=== PATIENT | male | born 1950 | race Caucasian/White ===

== ENCOUNTER 2025-02-10 12:54 | Outpatient (AMB) | payer MEDICARE, MEDICAID, SELFPAY ==
--- NOTE | 2025-02-10 12:57 | A.OFFVIS_ITS ---
Intake Visit Reasons: Hidden penis (Likely circumcision consult) Intake Note: Patient is present for HIDDEN PENIS Urology Medication:TERAZOSIN Antibiotic Allergy:NONE Blood Thinner:NONE TODAY'S PVR:0ML'S Court Worker Required: No Allergies Codeine Sulfate Allergy (Unknown, Uncoded 02/10/25 13:36) sick Medication List - Last Reconciled 02/10/25 by Mabel Stanford [facility]- carvedilol 12.5 mg PO BID duloxetine mg PO empagliflozin (Jardiance) 25 mg PO DAILY furosemide 20 mg PO DAILY icosapent ethyl (Vascepa) 1 g PO BID insulin detemir U-100 units subcut metformin 1,000 mg PO BID omeprazole 20 mg PO DAILY semaglutide (Ozempic) 0.5 mg subcut QWEEK sennosides-docusate sodium 8.6-50 mg (Senna-S) 1 - 2 tabs PO DAILY PRN simvastatin 20 mg PO BEDTIME terazosin 2 mg PO DAILY trazodone mg PO valsartan 160 mg PO DAILY HPI Comments Details: Syed is a very pleasant 74-year-old male patient of Dr. Nichols. He has a past medical history of bilateral primary osteoarthritis of hips, osteo arthritis, hidden penis, type 2 diabetes with diabetic polyneuropathy, heart failure, obstructive sleep apnea, depression, anemia, chronic kidney disease, dyslipidemia, and morbid obesity. He presents to the office today as a new patient for a hidden penis. In assessment of the patient today patient with a significant amount of adipose tissue to the suprapubic tube area. The meatus of the penis is on visible there is skin tunneling with scarring. Unable to obtain urine for urinalysis today however PVR 0 mL. The patient does report he is able to urinate without difficulty. He is enquiring surgical intervention. He does discusses recent weight loss journey with GLP-1 and has lost approximately 30-40 lb in the last 4-6 months. We did discussed referral to Dr. Davis for further assessment evaluation. He denies any bothersome urinary issues. He does report urinary frequency however feels this is self managing in does not feel he is bothered by it. He denies hematuria, dysuria, foul smelling urine, flank pain, fever, and or chills. All questions were answered. He otherwise offers no other issues or concerns at this time. [facility] Medical History Unspecified dementia, mild, without behavioral disturbance, psychotic disturbance, mood disturbance, and anxiety Bilateral primary osteoarthritis of hip Muscle weakness (generalized) Bilateral primary osteoarthritis of knee Nail dystrophy Post-traumatic osteoarthritis, left ankle and foot Hidden penis Age-related cognitive decline Type 2 diabetes mellitus with diabetic polyneuropathy Hypertensive heart and chronic kidney disease without heart failure, with stage 1 through stage 4 chronic kidney disease, or unspecified chronic kidney disease Obstructive sleep apnea (adult) (pediatric) Major depression in partial remission Chronic hyperkalemia Anemia Osteoarthritis of right hip Benign hypertensive heart disease Dyslipidemia Morbid obesity Type 2 diabetes mellitus Review of Systems Eyes Reports no additional complaints ENT Reports no additional complaints Card Reports as per HPI Resp Reports as per HPI GI Reports as per HPI Reports as per HPI Musc Reports as per HPI Neuro Reports no additional complaints Psych Reports as per HPI Endo Reports as per HPI Physical Exam Const General: cooperative, comfortable, no acute distress, well developed, alert and awake Nutritional Appearance: obese Orientation/consciousness: patient oriented x3 Limitations: ambulation with cane HEENT Head: Yes normal to inspection, Yes normocephalic and Yes atraumatic Ears: hearing grossly normal bilaterally Eyes General: appearance normal, both eyes and all related structures Neck Neck: Yes normal visual inspection and Yes trachea midline Chest Chest palpation & inspection: normal inspection of the chest Resp Effort & Inspection: normal respiratory effort and able to speak in complete sentences Cardio Rate: regular rate GI Inspection: Yes normal to inspection Other: As per HPI General: Yes no CVA tenderness Back/Spine/Pelvis Back: no CVA tenderness Skin General skin exam: no rashes or lesions noted Neuro General: patient oriented x3 Extrem General: Yes normal to inspection Psych Appearance: grossly normal Mental Status: mental status grossly normal Speech and movement: Normal speech and movement present and Clear speech present Affect: normal affect Attitude: cooperative Thought process: Normal thought process present Thought content: Normal thought content present Insight: Fair insight present (Psych) Judgement: Fair judgement present (Psych) Office Procedures Post Void Residual Post Residual Void Post Void Residual (PVR): 0 [id number] Void Residual by ultrasound Assessment & Plan Assessment & Plan (1) Acquired buried penis: Code(s): N48.83 - Acquired buried penis Category: Medical Plan Unable to obtain urine for urinalysis as patient unable to void however PVR 0 mL. We discussed referral to Dr. Davis for further assessment evaluation. We discussed at length inverted penis and treatment options and risks and benefits of these treatment options He does report urinary frequency however feels he is managing this well independently in does not wish to undergo further treatment options at this time. Will obtain PSA for further assessment evaluation. Will obtain retroperitoneal ultrasound for further assessment evaluation. Will refer to Dr. Davis Follow-up in 3-6 months with imaging, PSA, and PVR; or sooner with any issues, concerns, and or questions. Orders: Orders Prostate Specific Antigen Today N40.0 - Benign prostatic hyperplasia without lower urinary tract symptoms US retroperitoneal comp 3 Months N40.0 - Benign prostatic hyperplasia without lower urinary tract symptoms Patient Instructions: The patient had an opportunity to ask questions regarding the treatment plan. All questions were answered. Physical exam, labs, and imaging were discussed and reviewed in detail. As well as risks, benefits, and discussion of treatment choices. No major barriers to understanding were identified. The patient expressed understanding and agreement with the above treatment plan. The patient was made aware they should contact our office by phone for worsening of their current condition, the appearance of new symptoms, or with any questions or concerns. Compliance is encouraged with any medications and follow up testing that is ordered. It is a privilege to be allowed the opportunity to participate in? your urological care.? Again, if you have any questions or con cerns If you have any questions or concerns please do not hesitate to contact me. The office is [phone]. This note is constructed using voice recognition software. While every effort has been made to ensure accuracy employee benefits director errors may have been included. Yours sincerely, NICK Moreau Coding Level of Care Code New Pt Level 4 (98354) Diagnoses Acquired buried penis N48.83 CPT Codes Post Residual Void - PVR CPT Code: 59800-Sdwy Void Residual by ultrasound ([id number]) Time Spent (min) 40
== END 2025-02-10 13:58 | disposition home or self-care (01) ==
PROVIDERS: PCP Physician Assistant Medical; Visit Provider Nurse Practitioner Family
DX: N48.83 Acquired buried penis (principal)
CPT/HCPCS: 99204

== ENCOUNTER → 2025-02-10 12:54 | Outpatient (BNVA) | payer MEDICARE, MEDICAID, SELFPAY | PROVIDERS: PCP Physician Assistant Medical; Visit Provider Nurse Practitioner Family | DX: N48.83 Acquired buried penis (principal) | CPT/HCPCS: 51798; 99202 ==